=== PATIENT | male | born 1990 | race Hispanic/Latino ===

== ENCOUNTER 2017-08-31 17:21 | Emergency (ER) | payer SELFPAY ==
[2017-08-31 17:42] VITALS: BP 129/85; TEMP 98.7; O2SAT 99
[2017-08-31 17:53] VITALS: PULSE 69
--- NOTE | 2017-08-31 18:53 | ED PDOC ---
Arrival/HPI - General Historian: Patient <Emily Munroe A - Last Filed: 08/31/17 21:08> <Sophie Garrett - Last Filed: 08/31/17 23:40> - General Chief Complaint: Upper Extremity Problem/Injury Time Seen by Provider: 08/31/17 17:22 - History of Present Illness Narrative History of Present Illness (Text): 08/31/17 19:01 27yo male who present with complaint of left shoulder and right elbow pain x months. Notes pain is intermittent with intermittent numbness to his hands. States he never saw a Doctor for the symptoms. Did not take any analgesic. Denies trauma, cehst pain, focal weakness, any other complaint. (Emily Munroe A) Past Medical History - Provider Review Nursing Documentation Reviewed: Yes - Psychiatric Hx Substance Use: No <Emily Munroe A - Last Filed: 08/31/17 21:08> Family/Social History - Physician Review Nursing Documentation Reviewed: Yes Family/Social History: Unknown Family HX Smoking Status: Heavy Smoker > 10 Cigarettes Daily Hx Alcohol Use: No Hx Substance Use: No <Emily Munroe A - Last Filed: 08/31/17 21:08> Allergies/Home Meds <Emily Munroe A - Last Filed: 08/31/17 21:08> <Sophie Garrett - Last Filed: 08/31/17 23:40> Allergies/Adverse Reactions: Allergies No Known Allergies Allergy (Verified 08/31/17 17:42) Review of Systems - Physician Review All systems were reviewed & negative as marked: Yes - Review of Systems Constitutional: Normal Eyes: Normal ENT: Normal Respiratory: Normal Cardiovascular: Normal Gastrointestinal: Normal Genitourinary Male: Normal Musculoskeletal: Arthralgias (Left shoulder and right elbow pain) Skin: Normal Neurological: Normal Endocrine: Normal Hemo/Lymphatic: Normal Psychiatric: Normal <Emily garza A - Last Filed: 08/31/17 21:08> Physical Exam Vital Signs Reviewed: Yes Temperature: Afebrile Blood Pressure: Normal Pulse: Regular Respiratory Rate: Normal Appearance: Positive for: Well-Appearing, Non-Toxic, Comfortable Pain Distress: None Mental Status: Positive for: Alert and Oriented X 3 - Systems Exam Head: Present: Atraumatic, Normocephalic Pupils: Present: PERRL Extroacular Muscles: Present: EOMI Conjunctiva: Present: Normal Mouth: Present: Moist Mucous Membranes Neck: Present: Normal Range of Motion Respiratory/Chest: Present: Clear to Auscultation, Good Air Exchange. No: Respiratory Distress, Accessory Muscle Use Cardiovascular: Present: Regular Rate and Rhythm, Normal S1, S2. No: Murmurs Abdomen: Present: Normal Bowel Sounds. No: Tenderness, Distention, Peritoneal Signs Back: Present: Normal Inspection Upper Extremity: Present: Normal ROM, NORMAL PULSES, Tenderness (LEft shoulder AC joint and right elbow), Neurovascularly Intact. No: Cyanosis, Edema, Swelling, Temperature Abnormalties, Deformity Lower Extremity: Present: Normal Inspection. No: Edema Neurological: Present: GCS=15, CN II-XII Intact, Speech Normal Skin: Present: Warm, Dry, Normal Color. No: Rashes Psychiatric: Present: Alert, Oriented x 3, Normal Insight, Normal Concentration <ShanekaHappiness A - Last Filed: 08/31/17 21:08> Vital Signs Temp Pulse Resp BP Pulse Ox 08/31/17 19:00 19 99 08/31/17 17:52 98.7 F 69 18 99 08/31/17 17:37 98.7 F 66 18 129/85 99 Medical Decision Making <DiruHappiness A - Last Filed: 08/31/17 21:08> <Sophie Garrett - Last Filed: 08/31/17 23:40> ED Course and Treatment: 08/31/17 19:05 PT in ED for stated history. He have no focal weakness in ED. Have FROM. Left shoulder/right elbow - No acute finding Result was DW the pt. He was given Naprosyn for MS/inflammation. Advised to f/u with ortho. (Diru,Happiness A) - RAD Interpretation Radiology Orders: 08/31/17 18:33 ELBOW RIGHT 3 VIEWS ROUTINE [RAD] Stat SHOULDER LEFT [RAD] Stat - Medication Orders Current Medication Orders: Discontinued Medications Ketorolac Tromethamine (Toradol) 60 mg IM STAT STA Stop: 08/31/17 18:34 Last Admin: 08/31/17 19:00 Dose: 60 mg [facility] Pain Assessment Document 08/31/17 19:00 CAST (Rec: 08/31/17 19:00 [facility] [id number]) Pain Reassessment Is this a pain reassessment? No Sleep Is patient sleeping during reassessment? No Presence of Pain Presence of Pain Yes Pain Scale Used Pain Scale Used Numeric Location Left, Right or Bilateral Bilateral Pain Location Body Site Arm Description Description Constant Intensity of Pain at present 8 Pain Behavior Facial Grimacing Aggravating Factors Changing Position Alleviating Factors/Management Position Change Techniques Alleviating Factors Medication IM Administration Charges Document 08/31/17 19:00 CAST (Rec: 08/31/17 19:00 [email or web address] [id number]) Injection Site MAR Injection Site Left Deltoid Charges for Administration # of IM Administrations 1 - PA / [employer] / Resident Statement MD/DO has reviewed & agrees with the documentation as recorded. <Sophie Garrett - Last Filed: 08/31/17 23:40> Disposition/Present on Arrival - Present on Arrival Any Indicators Present on Arrival: No History of DVT/PE: No History of Uncontrolled Diabetes: No Urinary Catheter: No History of Decub. Ulcer: No History Surgical Site Infection Following: None - Disposition Have Diagnosis and Disposition been Completed?: Yes Disposition Time: 19:00 Patient Plan: Discharge <Emily Munroe - Last Filed: 08/31/17 21:08> <Sophie Garrett - Last Filed: 08/31/17 23:40> - Disposition Diagnosis: Shoulder pain, Elbow pain Disposition: HOME/ ROUTINE Condition: STABLE Discharge Instructions (ExitCare): Shoulder Pain (ED) Additional Instructions: Follow up with the clinic/ortho Return to ED for any new or worsening symptoms Prescriptions: Naproxen [Naprosyn] 500 mg PO BID #20 tablet Referrals: [facility] [place] [Outside] - [place] up [place] [facility] [place] - Follow up with primary Forms: [employer] (Polish), WORK NOTE
[2017-08-31 19:01] VITALS: RESP 19
--- NOTE | 2017-09-01 08:54 | RAD ---
PROCEDURE: Radiographs of the Left Shoulder HISTORY: shoulder pain COMPARISON: No prior. FINDINGS: BONES: Bone alignment and mineralization are normal. There is no acute displaced fracture or bone destruction. JOINTS: Normal. Glenohumeral and acromioclavicular joints preserved. No osteoarthritis. SOFT TISSUES: Normal. OTHER FINDINGS: None. IMPRESSION: Normal examination.
--- NOTE | 2017-09-01 08:55 | RAD ---
PROCEDURE: Radiographs of the right elbow. HISTORY: Pain COMPARISON: No prior. FINDINGS: BONES: Bone alignment and mineralization are normal. No acute fracture or bone destruction. JOINTS: Normal. No osteoarthritis. SOFT TISSUES: Normal. JOINT EFFUSION: None. OTHER FINDINGS: None. IMPRESSION: Normal examination.
== END 2017-08-31 19:01 | disposition home or self-care (01) ==
LOC: ED 17:21
DX: M25.512 Pain in left shoulder (principal); M25.521 Pain in right elbow
CPT/HCPCS: 73030; 73080; 96372; 99283; J1885

== ENCOUNTER 2018-11-14 10:05 | Outpatient (CLI) | payer SELFPAY | END 2018-11-14 10:06 | disposition home or self-care (01) | LOC: LAB 10:05 ==